=== PATIENT | female | born 1955 | race Asian ===

== ENCOUNTER 2017-11-05 05:46 | Inpatient (IN) | payer BC ==
[2017-10-29 08:09] LABS: ADD MAN DIFF? NO
[2017-10-29 08:15] LABS: BASOPHIL # 0.1 10^3/ul (0.0-0.1); BASOPHILS % 1.3 % (0.0-2.0); EOSINOPHILS # 0.2 10^3/ul (0.0-0.5); EOSINOPHILS % 4.9 % (0.0-7.0); HEMATOCRIT 43.3 % (37.0-47.0); HEMOGLOBIN 14.3 g/dl (12.0-16.0); LYMPHOCYTES # 1.3 10^3/ul (0.8-2.9); LYMPHOCYTES % 27.7 % (15.0-51.0); MEAN CORPUSCULAR HEMOGLOBIN 29.5 pg (29.0-33.0); MEAN CORPUSCULAR VOLUME 89.5 fl (82.0-101.0); MEAN PLATELET VOLUME 8.8 fl (7.4-10.4); MONOCYTE # 0.3 10^3/ul (0.3-0.9); MONOCYTES % 5.5 % (0.0-11.0); NEUTROPHIL # 2.7 10^3/ul (1.6-7.5); NEUTROPHILS % 60.4 % (39.0-77.0); PLATELET COUNT 288 10^3/UL (140-415); RED BLOOD COUNT 4.84 10^6/ul (4.20-5.40); RED CELL DISTRIBUTION WIDTH 12.4 % (11.5-14.5)
[2017-10-29 08:15] LABS: WHITE BLOOD COUNT 4.5 10^3/ul (4.8-10.8)
[2017-10-29 08:35] LABS: INR 0.84; PROTIME 11.6 Sec (11.9-14.9); PT RATIO 0.9
[2017-10-29 08:36] LABS: PARTIAL THROMBOPLASTIN TIME 34.3 Sec (25.0-35.0)
[2017-10-29 08:40] LABS: ADD UMIC NO; UR ASCORBIC ACID NEGATIVE (NEGATIVE); UR BILIRUBIN (Dip) NEGATIVE (NEGATIVE); UR BLOOD (Dip) NEGATIVE (NEGATIVE); UR CLARITY CLEAR (CLEAR); UR COLOR YELLOW (YELLOW); UR GLUCOSE (Dip) NEGATIVE (NEGATIVE); UR KETONES (Dip) NEGATIVE (NEGATIVE); UR LEUKOCYTE ESTERASE (Dip) NEGATIVE Leu/ul (NEGATIVE); UR NITRITE (Dip) NEGATIVE (NEGATIVE); UR SPECIFIC GRAVITY (Dip) 1.006 (1.003-1.030); UR TOTAL PROTEIN (Dip) NEGATIVE (NEGATIVE); UR UROBILINOGEN (Dip) NEGATIVE (NEGATIVE)
[2017-10-29 08:41] LABS: ALANINE AMINOTRANSFERASE 48 IU/L (13-69); ALBUMIN 4.5 g/dl (3.3-4.9); ALKALINE PHOSPHATASE 54 IU/L (42-121); ANION GAP 17 (8-16); ASPARTATE AMINO TRANSFERASE 30 IU/L (15-46); BILIRUBIN,INDIRECT 0.4 mg/dl (0-1.1); BILIRUBIN,TOTAL 0.4 mg/dl (0.2-1.3); BLOOD UREA NITROGEN 14 mg/dl (7-20); CARBON DIOXIDE 28 mmol/L (21-31); CHLORIDE 103 mmol/L (97-110); CHOL/HDL RATIO 3.4 RATIO; CHOLESTEROL 226 mg/dl (100-200); GLUCOSE 130 mg/dl (70-220); HDL CHOLESTEROL 65 mg/dl (35-98); LDL CHOLESTEROL,CALCULATED 139 mg/dl; SODIUM 144 mmol/L (135-144); TOTAL PROTEIN 7.7 g/dl (6.1-8.1); TRIGLYCERIDES 112 mg/dl (0-149)
[2017-10-29 09:29] LABS: HEPATITIS B SURFACE ANTIBODY POSITIVE (NEGATIVE)
[2017-10-29 10:54] LABS: HEPATITIS C VIRAL ANTIBODY NEGATIVE (NEGATIVE); HIV 1&2 ANTIBODY NEGATIVE (NEGATIVE)
[2017-11-05] MEDS ORDERED: ONDANSETRON 4 MG INJ IV ×2 (06:30→10:00)
[2017-11-05] MEDS ORDERED: DEXTROSE 5%-LR 1,000 ML IV (06:30)
[2017-11-05] MEDS ORDERED: LABETALOL HCL 20MG INJ IV (06:30)
[2017-11-05] MEDS ORDERED: hydrALAzine 20 MG INJ IV (06:30)
[2017-11-05] MEDS ORDERED: morphine (1 MG/ML) 10ML SYRINGE IV ×3 (06:30)
[2017-11-05] MEDS ORDERED: FENTAnyl 50 MCG/ML VIAL IV ×2 (06:30)
[2017-11-05] MEDS ORDERED: MEPERIDINE 25 MG INJ IV (06:30)
[2017-11-05] MEDS ORDERED: MIDAZOLAM 1 MG/ML 2 ML INJ IV (06:30)
[2017-11-05] MEDS ORDERED: HYDROmorphONE (0.2 MG/ML) 10ML SYG IV ×3 (06:30)
[2017-11-05] MEDS ORDERED: DIPHENHYDRAMINE 50 MG INJ IV (06:30)
[2017-11-05] MEDS ORDERED: OXYCODONE/ACETAMINOPHEN (5/325) TAB PO ×2 (06:30)
[2017-11-05] MEDS: CLINDAMYCIN 900 MG/D5W (PMX) 50 ML IVPB (06:30)
[2017-11-05] MEDS ORDERED: ATROPINE 1 MG/10 ML SYRINGE IV (06:30)
[2017-11-05] MEDS ORDERED: EPHEDrine SULFATE 50 MG/5 ML SYG IV (06:30)
[2017-11-05] MEDS ORDERED: PROPOFOL 20 ML (06:32)
[2017-11-05] MEDS ORDERED: LIDOCAINE 2% (SDV) 5 ML INJ (06:32)
[2017-11-05] MEDS ORDERED: FENTAnyl 50 MCG/ML VIAL (06:32)
[2017-11-05] MEDS ORDERED: MIDAZOLAM 1 MG/ML 2 ML INJ (06:32)
[2017-11-05] MEDS ORDERED: NEOSTIGMINE 3 MG/3 ML SYRINGE (06:32)
[2017-11-05] MEDS ORDERED: ROCURONIUM 50 MG INJ (06:32)
[2017-11-05] MEDS ORDERED: GLYCOPYRROLATE 0.4 MG INJ (06:32)
[2017-11-05] MEDS ORDERED: ONDANSETRON 4 MG INJ (06:33)
[2017-11-05] MEDS ORDERED: DEXAMETHASONE 4 MG/ML 1 ML INJ (06:33)
[2017-11-05] MEDS ORDERED: POLYMYXIN/BACITRACIN 1L IRRIG (06:56)
[2017-11-05] MEDS ORDERED: THROMBIN 5000 UNIT VIAL (06:56)
[2017-11-05] MEDS ORDERED: CLINDAMYCIN 900 MG/50 ML D5W IVPB IVPB (07:00)
[2017-11-05] MEDS ORDERED: BUPIVACAINE 0.75%/DEXT (SPINAL) 2 ML INJ (07:22)
[2017-11-05] MEDS ORDERED: DEXTROSE 5%-0.9% NACL 1,000 ML IV (08:00)
[2017-11-05] MEDS ORDERED: hydrALAzine 20 MG INJ (08:28)
[2017-11-05] MEDS ORDERED: LABETALOL HCL 20MG INJ (08:28)
[2017-11-05] MEDS: LIDOCAINE 1%/EPI 30 ML INJ ×2 (08:43)
[2017-11-05] MEDS: LACTATED RINGER'S 1,000 ML IV ×2 (09:44→17:44)
[2017-11-05] MEDS ORDERED: BISACODYL (EC) 5 MG TAB PO (10:00)
[2017-11-05] MEDS ORDERED: HYDROCODONE/APAP (5/325) TAB PO ×2 (10:00)
[2017-11-05] MEDS ORDERED: ZOLPIDEM 5 MG TAB PO (10:00)
[2017-11-05] MEDS ORDERED: KETOROLAC 30 MG INJ IV ×2 (10:00)
[2017-11-05] MEDS ORDERED: DIPHENHYDRAMINE 50 MG CAP PO (10:00)
[2017-11-05] MEDS ORDERED: GLUCOSE GEL 15 GRAM TUBE BUCCAL (10:30)
[2017-11-05] MEDS: KETOROLAC 30 MG INJ IV ×3 (10:30→21:54)
[2017-11-05] MEDS ORDERED: GLUCOSE GEL 15 GRAM TUBE PO ×2 (10:30)
[2017-11-05] MEDS ORDERED: GLUCAGON 1 MG INJ IM (10:30)
[2017-11-05] MEDS ORDERED: DEXTROSE 50% 50 ML SYRINGE IV ×2 (10:30)
[2017-11-05] MEDS: METOCLOPRAMIDE 10 MG TAB PO ×2 (13:10→18:29)
[2017-11-05] MEDS: CLINDAMYCIN 600 MG/D5W (PMX) 50 ML IVPB (18:48)
[2017-11-05] MEDS: metFORMIN 500 MG TAB PO (20:43)
[2017-11-06] MEDS: KETOROLAC 30 MG INJ IV ×3 (04:00→16:00)
[2017-11-06 05:16] LABS: ADD MAN DIFF? NO
[2017-11-06 05:19] LABS: WHITE BLOOD COUNT 10.2 10^3/ul (4.8-10.8)
[2017-11-06 05:19] LABS: BASOPHILS % 0.3 % (0.0-2.0); EOSINOPHILS # 0.1 10^3/ul (0.0-0.5); EOSINOPHILS % 0.5 % (0.0-7.0); HEMATOCRIT 35.5 % (37.0-47.0); HEMOGLOBIN 11.7 g/dl (12.0-16.0); LYMPHOCYTES % 19.4 % (15.0-51.0); MEAN CORPUSCULAR HEMOGLOBIN 29.8 pg (29.0-33.0); MEAN CORPUSCULAR VOLUME 90.3 fl (82.0-101.0); MEAN PLATELET VOLUME 9.2 fl (7.4-10.4); MONOCYTE # 0.7 10^3/ul (0.3-0.9); MONOCYTES % 7.2 % (0.0-11.0); NEUTROPHIL # 7.4 10^3/ul (1.6-7.5); NEUTROPHILS % 72.2 % (39.0-77.0); PLATELET COUNT 248 10^3/UL (140-415); RED BLOOD COUNT 3.93 10^6/ul (4.20-5.40); RED CELL DISTRIBUTION WIDTH 12.5 % (11.5-14.5)
[2017-11-06 05:39] LABS: ANION GAP 12 (8-16); BLOOD UREA NITROGEN 14 mg/dl (7-20); CARBON DIOXIDE 26 mmol/L (21-31); CHLORIDE 103 mmol/L (97-110); CREATININE 0.65 mg/dl (0.44-1.00); SODIUM 137 mmol/L (135-144)
[2017-11-06] MEDS: METOCLOPRAMIDE 10 MG TAB PO ×4 (05:50→16:43)
[2017-11-06] MEDS: metFORMIN 500 MG TAB PO (08:46)
== END 2017-11-06 20:10 | disposition home or self-care (01) | DRG 748 ==
LOC: REC 05:46 → MS1 10:33
PROC: 0JUC0JZ Supplement of Pelvic Region Subcutaneous Tissue and Fascia with Synthetic Substitute, Open Approach (ICD-10-PCS; principal; 2017-11-05 07:30)
PROC: 0JQC0ZZ Repair Pelvic Region Subcutaneous Tissue and Fascia, Open Approach (ICD-10-PCS; 2017-11-05 07:30)
PROC: 0TSD0ZZ Reposition Urethra, Open Approach (ICD-10-PCS; 2017-11-05 07:30)
DX: N81.10 Cystocele, unspecified (principal); N81.6 Rectocele; N81.89 Other female genital prolapse; N39.46 Mixed incontinence; K59.00 Constipation, unspecified; K64.9 Unspecified hemorrhoids; E11.9 Type 2 diabetes mellitus without complications; Z90.710 Acquired absence of both cervix and uterus; Z90.722 Acquired absence of ovaries, bilateral; Z90.79 Acquired absence of other genital organ(s); Z79.84 Long term (current) use of oral hypoglycemic drugs
CPT/HCPCS: 71045; 80051; 80053; 80061; 81003; 82565; 82962; 83036; 84520; 85025; 85610; 85730; 86703; 86706; 86803; 86900; 86901; 87086; 93005